=== PATIENT | male | born 1975 | race Caucasian/White ===

== ENCOUNTER 2021-01-19 12:57 | Emergency (ER) | payer OTHER, SELFPAY ==
[2021-01-19 13:05] VITALS: BP 151/94; PULSE 84; RESP 16; TEMP 36.8; O2SAT 100
[2021-01-19 13:46] VITALS: BP 133/90; PULSE 88; RESP 16; O2SAT 100
--- NOTE | 2021-01-19 13:47 | ED.GENADULT ---
HPI - General Adult General Chief complaint: Environmental Exposure Stated complaint: heat exhaustion Time Seen by Provider: 01/19/21 13:29 Source: patient Mode of arrival: EMS Limitations: no limitations History of Present Illness HPI narrative: Patient is a 45-year-old male who presents by EMS. Patient reports heat exhaustion. Patient reports that he currently works outside with concrete and became dizzy and lightheaded this afternoon. Patient reports drinking Gatorade and water and vomiting. Patient reports weakness and muscle twitching. Vital signs stable. Denies LOC, denies fall. Patient denies significant medical history. Patient denies taking [id number] meds prior to arrival. Patient arrived by EMS due to weakness. MD complaint: Heat exposure Related Data Home Medications Medication Instructions Recorded Confirmed omeprazole 01/19/21 Review of Systems Review of Systems: Narrative: CONSTITUTIONAL: Denies fever, chills, or sweats. EYES: Denies visual changes, redness, or discharge. ENT: Denies rhinorrhea, congestion, sore throat, or otalgia. CARDIOVASCULAR: Denies chest pain, palpitations, or edema. RESPIRATORY: Denies cough or dyspnea. GASTROINTESTINAL: Reports nausea and vomiting GENITOURINARY: Denies dysuria or hematuria. SKIN: Denies rash or itching. MUSCULOSKELETAL: Denies back pain, joint pain, or myalgia. NEUROLOGIC: Denies headache, numbness, dizziness, or weakness. PSYCHIATRIC: Denies anxiety or depression. [facility] Past Medical History Medical History Chronic back pain Chronic neck pain Ulcerative colitis Surgical History Surgical History H/O hand surgery History of nasal surgery Family History Family History Other Hypertension Social History Social History (Updated 01/19/21 @ 13:49 by PENNY Duff) Alcohol intake: current Alcohol use details: Occasional Substance use: never Living arrangements: with family Occupation/Education: occupation Comments At the time of signature, I have reviewed and agree with nursing past medical, surgical, social, and family history unless otherwise noted. Please see nursing chart for further information. There is no relevant family history pertinent to the presenting complaint. Exam Narrative: Exam Narrative: GENERAL: Well-appearing, well-nourished, and in no acute distress. HEAD: Normocephalic, atraumatic. EYES: EOMI. No redness or drainage. Conjunctiva are normal. ENT: Mucous membranes pink and moist. CHEST: No respiratory distress. Clear to auscultation. HEART: Regular rate and rhythm. No murmur appreciated. Normal peripheral pulses. GI: Soft, nontender without rebound, or guarding. No distention. Bowel sounds normal in all quadrants. MUSCULOSKELETAL: No bony tenderness. EXTREMITIES: Normal range of motion. No edema. SKIN: Warm, dry, no rash. NEURO: No focal deficits. Alert and oriented x3. Gait steady. PSYCH: Normal affect. No signs of depression or anxiety. Course Vital Signs Vital signs: Vital Signs Temperature 36.8 C 01/19/21 13:05 Pulse Rate 84 01/19/21 13:05 Respiratory Rate 16 01/19/21 13:05 Blood Pressure 151/94 H 01/19/21 13:05 Pulse Oximetry 100 01/19/21 13:05 Temperature 36.8 C 01/19/21 13:05 Pulse Rate 89 01/19/21 14:31 Respiratory Rate 16 01/19/21 14:31 Blood Pressure 134/82 01/19/21 14:31 Pulse Oximetry 99 01/19/21 14:31 Reviewed. Patient has been instructed to follow-up with his PCP regarding his blood pressure. Medical Decision Making MDM Narrative Medical decision making narrative: Patient reports pain to wrist and states must have fell . Patient answering question but mumbling to self at times. Patient refuses labs and urine. Discussed with patient possible complications of heat
[2021-01-19] MEDS: SODIUM CHLORIDE 0.9% IV 1,000 ML 999 ML IV CONT (13:53)
[2021-01-19] MEDS: ONDANSETRON INJ 4 MG/2 ML VIAL IV PUSH (13:55)
[2021-01-19 14:31] VITALS: BP 134/82; PULSE 89; RESP 16; O2SAT 99
[2021-01-19 15:00] VITALS: BP 150/76; PULSE 70; RESP 16; O2SAT 100
== END 2021-01-19 15:00 | disposition left against medical advice (07) ==
PROVIDERS: Emergency Provider Nurse Practitioner
DX: T67.1XXA Heat syncope, initial encounter (principal); R03.0 Elevated blood-pressure reading, without diagnosis of hypertension; X30.XXXA Exposure to excessive natural heat, initial encounter
CPT/HCPCS: 96361; 96374; 99284; J2405; J7030